=== PATIENT | male | born 1980 | race Two or more races ===

== ENCOUNTER 2017-10-08 11:50 | Emergency (ER) | payer OTHER ==
[~2017-10-08] VITALS: Ht 172.7 cm; Wt 113.4 kg
--- NOTE | 2017-10-08 12:00 | NUR ---
PT CAME IN WITH C/O FLUCTUATING HEART RATE BASED ON HIS APPLE WATCH. REPORTS HX OF PVCS. DENIES SOB, CHEST PAIN- ASYMPTOMATIC. VSS. SAFETY AND COMFORT MEASURES PROVIDED. WILL MONITOR.
--- NOTE | 2017-10-08 12:02 | NUR ---
AT FOR NATALIE. EKG IN PROGRESS.
--- NOTE | 2017-10-08 12:11 | NUR ---
Patient discharged to home in stable condition. Written and verbal after care instructions given. Patient verbalizes understanding of instruction.
[2017-10-08 12:12] VITALS: BP 132/81
== END 2017-10-08 12:12 | disposition home or self-care (01) ==
LOC: ER 11:52
DX: I49.3 Ventricular premature depolarization (principal); Z88.0 Allergy status to penicillin
CPT/HCPCS: A4606; Z7610